=== PATIENT | female | born 1935 | race Caucasian/White ===

== ENCOUNTER 2022-06-01 14:32 | Emergency (ER) | payer MEDICARE, OTHER ==
[~2022-06-01] VITALS: Ht 154.9 cm; Wt 63.5 kg
--- NOTE | 2022-06-01 14:40 | NUR ---
ASSUME PATIENT CARE, RESTING IN BED. C/O L ELBOW/L FOREARM PAIN S/P MECHANICAL GLF WHILE WALKING WITH DAUGHTER. NO HEAD TRAUMA ENDORSED.STABLE VITALS. AWAITING MD LOWRY.
--- NOTE | 2022-06-01 14:55 | NUR ---
DR SERRATO AT BEDSIDE FOR EVAL.
--- NOTE | 2022-06-01 15:40 | NUR ---
DR. SERRATO WAS NOTIFIED OF THE BP= 186/102 AND LEFT ELBOW PAIN 12/22
--- NOTE | 2022-06-01 15:52 | NUR ---
RADIOLOGY AT BEDSIDE FOR L FOREARM/ELBOW XRAY
[2022-06-01] MEDS ORDERED: HYDROCODONE/APAP 10/325MG TABLET PO ONE (17:00)
[2022-06-01] MEDS ORDERED: HYDROCODONE/APAP 10/325MG TABLET ONE (17:02)
[2022-06-01] MEDS ORDERED: HYDR-3972 PO (18:28)
--- NOTE | 2022-06-01 18:59 | NUR ---
Patient discharged to home in stable condition. Written and verbal after care instructions given. Family verbalizes understanding of instruction.
[2022-06-01 19:00] VITALS: BP 151/98
== END 2022-06-01 19:00 | disposition home or self-care (01) ==
LOC: ER 14:34
DX: S52.022A Displaced fracture of olecranon process without intraarticular extension of left ulna, initial encounter for closed fracture (principal); I10 Essential (primary) hypertension; W01.0XXA Fall on same level from slipping, tripping and stumbling without subsequent striking against object, initial encounter; Y93.89 Activity, other specified; Y92.89 Other specified places as the place of occurrence of the external cause; Y99.8 Other external cause status
CPT/HCPCS: 73080-TC; 73090-TC

== ENCOUNTER 2025-06-07 14:36 | Inpatient (IN) | payer MEDICARE, OTHER ==
[~2025-06-07] VITALS: Ht 165.1 cm; Wt 44.5 kg
[~2025-06-07 14:36] MED LIST: HYDR-3972 PO
[2025-06-07 15:28] LABS: PLATELET COUNT (AUTO) 235 K/uL (150-450); RED BLOOD CELL COUNT(AUTO) 4.42 MIL/uL (4.0-5.2); RED CELL DISTRIBUTION WIDTH 14.3 % (11.5-15.0); WHITE BLOOD COUNT (AUTO) 7.4 K/uL (4.3-11.0)
[2025-06-07 15:34] LABS: CALCIUM, SERUM 9.9 mg/dL (8.5-10.1); CREATININE 0.5 mg/dL (0.6-1.3); SODIUM SERUM 144.0 mmol/L (136-145); UREA NITROGEN, BLOOD 10.0 mg/dL (7-18)
[2025-06-07 15:43] LABS: INR 0.98 (0.91-1.10)
[2025-06-07] MEDS ORDERED: HYDR-4303 PO (17:19)
[2025-06-07] MEDS ORDERED: DOCU-141 PO (17:19)
[2025-06-07] MEDS ORDERED: QUET50TA PO ×2 (17:19)
[2025-06-07] MEDS ORDERED: FAMO20TA8 PO (17:19)
[2025-06-07] MEDS ORDERED: QUET100T PO (17:19)
[2025-06-07] MEDS ORDERED: TRAZ-182 PO (17:19)
[2025-06-07] MEDS ORDERED: MORPHINE SULFATE 8 MG/ML VIAL IV PRN (18:00)
[2025-06-07] MEDS: ENOXAPARIN SODIUM 40 MG/0.4 ML DISP.SYRIN SQ SCH (18:00)
[2025-06-07] MEDS ORDERED: HYDROCODONE/APAP 5/325MG TABLET PO PRN (18:00)
[2025-06-07] MEDS ORDERED: ACETAMINOPHEN 325 MG TABLET PO PRN (18:00)
[2025-06-07] MEDS ORDERED: HYDROCODONE/APAP 10/325MG TABLET PO PRN (18:00)
[2025-06-07] MEDS ORDERED: Z GUARD REMEDY 4 OZ OINT TP PRN (18:00)
[2025-06-07] MEDS ORDERED: ONDANSETRON HCL/PF 4 MG/2 ML VIAL IVP PRN (18:00)
[2025-06-07] MEDS ORDERED: MAGNESIUM HYDROXIDE 30 ML UDC PO PRN (18:00)
[2025-06-07] MEDS ORDERED: MAG HYDROX/AL HYDROX/SIMETH 30 ML UDC PO PRN (18:00)
[2025-06-07 20:00] VITALS: BP 151/80; TEMP 97.5; O2SAT 97
[2025-06-07] MEDS: IV 1/2NS 1000 ML 1,000 ML IV PRN (21:40)
[2025-06-08] MEDS ORDERED: HYDROCODONE/APAP 5/325MG TABLET PO PRN
[2025-06-08] MEDS: PANTOPRAZOLE 40 MG TABLET.DR PO SCH (07:30)
[2025-06-08 07:38] LABS: INR 0.96 (0.91-1.10)
[2025-06-08 07:43] LABS: PLATELET COUNT (AUTO) 283 K/uL (150-450); RED BLOOD CELL COUNT(AUTO) 4.66 MIL/uL (4.0-5.2); RED CELL DISTRIBUTION WIDTH 13.8 % (11.5-15.0); WHITE BLOOD COUNT (AUTO) 7.8 K/uL (4.3-11.0)
[2025-06-08] MEDS: QUETIAPINE FUMARATE 25 MG TABLET PO SCH ×2 (08:31→14:53)
[2025-06-08] MEDS: DOCUSATE SODIUM 100 MG CAPSULE PO SCH (08:31)
[2025-06-08] MEDS: FAMOTIDINE (20 MG) 20 MG TABLET PO SCH (08:31)
[2025-06-08 08:46] LABS: CALCIUM, SERUM 10.2 mg/dL (8.5-10.1); CREATININE 0.5 mg/dL (0.6-1.3); PHOSPHORUS 2.6 mg/dL (2.5-4.9); SODIUM SERUM 143.0 mmol/L (136-145); UREA NITROGEN, BLOOD 7.0 mg/dL (7-18)
[2025-06-08] MEDS ORDERED: ANESTHESIA TRAY IN PYXIS 1 EA TRAY MC ONE (09:53)
[2025-06-08] MEDS ORDERED: BUPIVACAINE 0.5 % PF 150 MG/30 ML VIAL ONE (09:53)
[2025-06-08] MEDS ORDERED: VANCOMYCIN 1 GM VIAL ONE (09:53)
[2025-06-08] MEDS ORDERED: ROPIVACAINE HCL 0.5% 5 MG/ML 30ML VIAL ONE (11:01)
[2025-06-08] MEDS ORDERED: ROCURONIUM BROMIDE 50 MG/5 ML ONE (11:01)
[2025-06-08] MEDS ORDERED: SUGAMMADEX SODIUM 200 MG/2 ML VIAL IV ONE (11:01)
[2025-06-08] MEDS ORDERED: FAMOTIDINE/PF INJ 20 MG/2 ML VIAL IV ONE (11:01)
[2025-06-08] MEDS ORDERED: LIDOCAINE 2% JEL UROJET 10 ML MM ONE (11:02)
[2025-06-08] MEDS ORDERED: LABETALOL HCL IV 100MG VIAL ONE (11:30)
[2025-06-08] MEDS ORDERED: SEVOFLURANE 250 ML BOTTLE IH ONE (11:33)
[2025-06-08] MEDS: MORPHINE SULFATE INJ 2 MG/ML DISP.SYRIN IV PRN ×2 (14:54→17:25)
[2025-06-08] MEDS ORDERED: LANOLIN/MIN OIL/PETROLAT,WHT 3.5 GM TUBE OP ONE (15:12)
[2025-06-08] MEDS ORDERED: CALCIUM CHLORIDE 1,000 MG/10 ML DISP.SYRIN IV ONE (15:12)
[2025-06-08] MEDS: ANCEF 1 GM/50 ML D5W IV SCH (18:25)
[2025-06-08] MEDS: TRAZODONE 50 MG TABLET PO SCH (21:26)
[2025-06-08] MEDS: QUETIAPINE FUMARATE 100 MG TABLET PO SCH (21:26)
[2025-06-08 22:02] VITALS: BP 114/58; TEMP 97.9; O2SAT 95
[2025-06-09] MEDS: ZOLPIDEM TARTRATE 5 MG TABLET PO PRN
[2025-06-09 06:53] LABS: PLATELET COUNT (AUTO) 231 K/uL (150-450); RED BLOOD CELL COUNT(AUTO) 3.85 MIL/uL (4.0-5.2); RED CELL DISTRIBUTION WIDTH 13.6 % (11.5-15.0); WHITE BLOOD COUNT (AUTO) 10.1 K/uL (4.3-11.0)
[2025-06-09 06:54] LABS: CALCIUM, SERUM 9.9 mg/dL (8.5-10.1); CREATININE 0.5 mg/dL (0.6-1.3); SODIUM SERUM 143.0 mmol/L (136-145); UREA NITROGEN, BLOOD 10.0 mg/dL (7-18)
== END 2025-06-09 16:15 | disposition hospice, home (50) | DRG 511 ==
LOC: ER 14:40 → MED 17:11
PROVIDERS: ADMIT Nurse Practitioner Family; ATTEND Internal Medicine
PROC: 0PSJ04Z Reposition Left Radius with Internal Fixation Device, Open Approach (ICD-10-PCS; principal; 2025-06-08 11:00)
DX: S52.592A Other fractures of lower end of left radius, initial encounter for closed fracture (principal); D68.59 Other primary thrombophilia; E44.0 Moderate protein-calorie malnutrition; S52.692A Other fracture of lower end of left ulna, initial encounter for closed fracture; G30.9 Alzheimer's disease, unspecified; Z68.1 Body mass index [BMI] 19.9 or less, adult; K44.9 Diaphragmatic hernia without obstruction or gangrene; F02.80 Dementia in other diseases classified elsewhere, unspecified severity, without behavioral disturbance, psychotic disturbance, mood disturbance, and anxiety; X58.XXXA Exposure to other specified factors, initial encounter; Y93.9 Activity, unspecified; Y92.89 Other specified places as the place of occurrence of the external cause
CPT/HCPCS: 36415; 71045-TC; 73100-TC; 73110; 73130-TC; 80048-TC; 83735-TC; 84100-TC; 85025-TC; 85610-TC; 85730-TC; 86850-TC; 87081-TC; 93308-TC; 97112-TC; 97530-TC; A4223; A4565; A6253; A6402; C1713; G0378; J0690; J1100; J1308; J2270; J2405; J2795; J3373; J3480; J3490; J7030; J7042; J7060